=== PATIENT | male | born 1990 | race African-American/Black ===

== ENCOUNTER 2018-11-10 00:02 | Emergency (ER) | payer OTHER ==
[2018-11-10 00:53] LABS: Band 4 % (5-11); Eosinophils 2 % (0-10); Hemoglobin 13.2 g/dL (14.0-18.0); Lymphocytes 22 % (21-51); MDiff Complete? YES; Mean Corpuscular HGB CONC 31.8 g/dL (32.0-36.0); Mean Corpuscular Hemoglobin 27.3 pg (27.0-31.0); Mean Corpuscular Volume 85.7 fL (78.0-98.0); Mean Platelet Volume 8.2 fL (7.4-10.4); Neutrophil 72 % (42-75); Platelet Count 222 thou/uL (130-400); Platelet Morphology Comment Appears Adequate; RBC Distribution Width 12.6 % (11.5-14.5); RBC Morphology Normal; Red Blood Cell (RBC) Count 4.83 mill/uL (4.70-6.10)
[2018-11-10 00:57] LABS: ALT (SGPT) 20 U/L (8-55); AST (SGOT) 19 U/L (5-34); Albumin 4.1 g/dL (3.5-5.0); Alkaline Phosphatase 63 U/L (40-150); Anion Gap 17 mmol/L (10-20); BUN (Urea Nitrogen) 12 mg/dL (8.9-20.6); Bilirubin, Total 0.3 mg/dL (0.2-1.2); Calc. Creatinine Clearance 0 mL/min (70-130); Calcium 9.2 mg/dL (7.8-10.44); Carbon Dioxide 20 mmol/L (22-29); Chloride 105 mmol/L (98-107); Estimated GFR-MDRD Greater than 90; Globulin 3.6 g/dL (2.4-3.5); Glucose 98 mg/dL (70-105); Potassium 3.7 mmol/L (3.5-5.1); Protein, Total 7.7 g/dL (6.0-8.3); Sodium 138 mmol/L (136-145)
[2018-11-10] MEDS ORDERED: Sodium Chloride 0.9% 250 ML 250 ML ONE (01:03)
[2018-11-10] MEDS ORDERED: Sodium Chloride 0.9% 100 ML ONE (01:06)
[2018-11-10] MEDS ORDERED: Piperacillin/Tazobactam 3.375 GM VIAL ONE (01:06)
== END 2018-11-10 06:18 | disposition short-term general hospital (02) ==
LOC: NAV ERS 00:02
DX: L03.116 Cellulitis of left lower limb (principal)
CPT/HCPCS: 36415; 80053; 83605; 85025; 86140; 87040; 96365; 96367; J2543; J3370; J3490; J7050

== ENCOUNTER 2022-02-10 21:05 | Emergency (ER) | payer OTHER ==
[2022-02-10] MEDS ORDERED: Ibuprofen 800 MG TAB ONE (21:59)
[2022-02-10] MEDS ORDERED: Clindamycin 150 MG CAP ONE (21:59)
== END 2022-02-10 22:05 ==
LOC: NAV ERS 21:05
DX: L03.115 Cellulitis of right lower limb (principal)
CPT/HCPCS: 99283